=== PATIENT | male | born 1960 | race Caucasian/White ===

== ENCOUNTER → 2018-12-02 | Outpatient (CLI) | payer OTHER ==
[~2018-12-02] MED LIST: IRBHYD150 PO
[2018-12-02 23:55] LABS: Stool Occult Bld Immuno 1 Negative (NEGATIVE)
== END ==
LOC: LAB 12:12 → LAB SHORT 12:12
PROVIDERS: Nurse Practitioner Family
DX: Z12.11 Encounter for screening for malignant neoplasm of colon (principal)
CPT/HCPCS: 82274

== ENCOUNTER 2021-10-25 09:49 | Day surgery (SDC) | payer OTHER ==
[~2021-10-25] VITALS: Ht 185.4 cm; Wt 95.2 kg
[~2021-10-25 09:49] MED LIST changes: +AMLO5 PO; +ATOR20 PO; +HYDCHL25 PO; +IRBE150 PO; +MELO7.5 PO
[2021-10-25] MEDS ORDERED: Aspir 8181 MG PO (10:03)
--- NOTE | 2021-10-25 10:34 | NUR ---
Ambulatory in Day Surgery History, Chart, Medications and Allergies reviewed before start of procedure. Lungs clear T/O to Auscultation. Pre-Op teaching done. Pt verbalizes understanding.
--- NOTE | 2021-10-25 11:28 | NUR ---
10/25/21 1128 George Cee 1G GIVEN IN PRE-OP @ [id number]
--- NOTE | 2021-10-25 16:47 | NUR ---
POST OP: REPORT RECIEVED FROM [facility]ER. PT TO UNIT AT 1420. PT IS A/O, VSS. SURGICAL SITE WNL. PT REPORTS MINIMAL PAIN. DENIES NAUSEA. WILL CTM, CALL LIGHT IN REACH
--- NOTE | 2021-10-25 17:27 | NUR ---
SUMMARY: NO ACUTE CHANGE SINCE POST OP. PT REPORTS PAIN IS WELL MANAGED WITH 1 OXYCODONE. PT ABLE TO WORK WITH THERAPY, SURGICAL SITE WNL. TOLERATING REG DIET. WILL CTM AND REPORT TO TAQUERIA ODOM.
--- NOTE | 2021-10-26 03:43 | NUR ---
SHIFT SUMMARY POD1 R TKA, A/OX4, VSS, TOLERATING PO, AMBULATING c FWW/GB/SBA, VOIDING WELL WITH MULTIPLE LARGE UNMEASURED VOIDS, PAIN WELL MANAGED. PT EDUCATED ON POST OP PLAN OF CARE FOR TONIGHT AND IN THE MORNING BEFORE DISCHARGE. PT AMBULATED IN [place] AND UP TO CHAIR T/O THE SHIFT. NO ACUTE EVENTS THIS SHIFT, CALL LIGHT IN REACH, WILL CTM AND REPORT TO ONCOMING DAY RN.
[2021-10-26 04:49] LABS: BASOPHILS PERCENT AUTO 0 % (0-2); EOSINOPHILS PERCENT AUTO 0 % (0-6); Hematocrit 33.3 % (37.0-53.0); Hemoglobin 11.4 g/dL (13.5-17.5); IMMATURE GRAN ABSOLUTE AUTO 0.01 K/mm3 (0.00-0.10); IMMATURE GRAN PERCENT AUTO 0 % (0-1); LYMPHOCYTES ABSOLUTE AUTO 0.74 K/mm3 (0.84-5.20); LYMPHOCYTES PERCENT AUTO 11 % (21-46); MONOCYTES ABSOLUTE AUTO 0.66 K/mm3 (0.16-1.47); MONOCYTES PERCENT AUTO 10 % (4-13); Mean Corpuscular HGB Conc 34.2 g/dL (31.5-36.5); Mean Corpuscular Volume 94 fL (80-100); Mean Platelet Volume 10.1 fL (9.1-12.4); NEUTROPHILS ABSOLUTE AUTO 5.15 K/mm3 (1.96-9.15); NEUTROPHILS PERCENT AUTO 78 % (41-73); Platelet Count 184 K/mm3 (150-400); RDW Standard Deviation 48.3 fL (35.1-46.3); Red Blood Cell Count 3.56 M/mm3 (4.30-5.90); White Blood Cell Count 6.56 K/mm3 (4.00-11.30)
[2021-10-26 05:05] LABS: Bun/Creatinine Ratio 10.4 (12.0-20.0); Calcium, Blood 8.4 mg/dL (8.5-10.1); Creatinine, Blood 0.77 mg/dL (0.60-1.20); Magnesium, Blood 2.2 mg/dL (1.6-2.4); Potassium, Blood 3.9 mmol/L (3.5-5.5)
[2021-10-26] MEDS ORDERED: SULTRIDS PO (07:28)
[2021-10-26] MEDS ORDERED: ASPIR 8181 MG PO (07:29)
[2021-10-26] MEDS ORDERED: Percocet 5-3251 EACH PO (07:31)
== END 2021-10-26 10:40 | disposition home or self-care (01) ==
LOC: ORSCMMR 09:49 → ORD 11:00 → ORSCMMR 11:00 → SURS 14:59 → ORSCMMR 10-26 10:40
PROVIDERS: Orthopaedic Surgery
PROC: 8E0YXBZ Computer Assisted Procedure of Lower Extremity (ICD-10-PCS; principal; 2021-10-25 11:00)
PROC: 0SRC0J9 Replacement of Right Knee Joint with Synthetic Substitute, Cemented, Open Approach (ICD-10-PCS; principal; 2021-10-25 11:00)
DX: M17.0 Bilateral primary osteoarthritis of knee (principal); I10 Essential (primary) hypertension; E78.00 Pure hypercholesterolemia, unspecified; Z79.899 Other long term (current) drug therapy; Z79.82 Long term (current) use of aspirin
CPT/HCPCS: 36415; 73560-RT; 80048; 83735; 85025; 97110; 97116; 97162; 97530; A9270; C1713; C1776; J0171; J0690; J0735; J1100; J1885; J2250; J2370; J2405; J2704; J2795; J3010; J3370; J7120

== ENCOUNTER 2022-08-16 08:36 | Day surgery (SDC) | payer OTHER ==
[~2022-08-16] VITALS: Ht 185.4 cm; Wt 96.4 kg
[2022-08-16] VITALS (16 sets, daily range): BP systolic 102–144; BP diastolic 70–90
[~2022-08-16 08:36] MED LIST changes: +ASPIR 8181 MG PO; +Aspir 8181 MG PO; +Percocet 5-3251 EACH PO; +SULTRIDS PO
--- NOTE | 2022-08-16 09:25 | NUR ---
Ambulatory in Day Surgery. Pre-Op teaching done. Pt verbalizes understanding. Patient confirms NPO status and agrees with scheduled surgery. Patient states colon prep results clear. Patient States Post-Procedure ride home has been arranged. Lungs clear T/O to Auscultation. History, Chart, Medications and Allergies reviewed before start of procedure.
--- NOTE | 2022-08-16 09:45 | NUR ---
08/16/22 09Shanthi Treviño HISTORY, CHART, MEDICATIONS AND ALLERGIES REVIEWED BEFORE START OF PROCEDURE. PATIENT CONFIRMS NPO STATUS AND AGREES WITH SCHEDULED PROCEDURE. 3-LEAD EKG REVIEWED WITH PHYSICIAN PRIOR TO START OF PROCEDURE. MONITOR INTACT WITH CONTINUOUS PULSE OXIMETRY,CAPNOGRAPHY, 3-LEAD EKG, INTERMITTENT BP. SUPPLEMENTAL O2 TO BE TITRATED THROUGHOUT PROCEDURE TO MAINTAIN O2 SATURATION ABOVE 90%. PATIENT DETERMINED TO BE ASA APPROPRIATE FOR PROPOFOL SEDATION PRIOR TO START OF PROCEDURE BY .
--- NOTE | 2022-08-16 10:14 | NUR ---
REPORT RECIEVED. PT U PIN BED TOLERATING PO FLUIDS. DR MABRY AT BEDSIDE. ON ROOM AIR. VSS
--- NOTE | 2022-08-16 10:27 | NUR ---
Patient up to Ambulate independently. Gait steady. Discharge instructions reviewed with patient. Patient verbalizes understanding. Copy given to patient to take home. Discharged via wheelchair to private car for ride home.
== END 2022-08-16 10:32 | disposition home or self-care (01) ==
LOC: ORSCMMR 08:36 → ORD 09:30 → ORSCMMR 09:30
PROVIDERS: Internal Medicine Gastroenterology
PROC: 0DBM8ZX Excision of Descending Colon, Via Natural or Artificial Opening Endoscopic, Diagnostic (ICD-10-PCS; principal; 2022-08-16 09:30)
PROC: 0DBK8ZX Excision of Ascending Colon, Via Natural or Artificial Opening Endoscopic, Diagnostic (ICD-10-PCS; principal; 2022-08-16 09:30)
DX: K62.5 Hemorrhage of anus and rectum (principal); Z86.010 Personal history of colon polyps; K63.5 Polyp of colon; K57.30 Diverticulosis of large intestine without perforation or abscess without bleeding; K64.4 Residual hemorrhoidal skin tags; K59.39 Other megacolon; I10 Essential (primary) hypertension; E78.00 Pure hypercholesterolemia, unspecified; Z79.899 Other long term (current) drug therapy
CPT/HCPCS: 88305; J2250; J2704; J7120

== ENCOUNTER → 2022-09-03 | Outpatient (CLI) | payer OTHER | LOC: LAB SHORT 08:30 → LAB 08:30 | DX: L03.116 Cellulitis of left lower limb (principal) | CPT/HCPCS: 87070; 87075; 87205 ==